=== PATIENT | male | born 1975 | race Hispanic/Latino ===

== ENCOUNTER 2018-05-08 11:25 | Emergency (ER) | payer BC ==
--- NOTE | 2018-05-08 14:53 | RAD REPORT ---
EXAM DESCRIPTION: US - Abdomen Exam Limited - 05/08/2018 2:33 pm CLINICAL HISTORY: Abdominal pain. COMPARISON: None. FINDINGS: The gallbladder wall is not thickened. A gallstone is not seen. The biliary tree is normal caliber. Liver has increased echotexture which may indicate fatty infiltra tion IMPRESSION: Unremarkable gallbladder ultrasound.
[2018-05-08 15:19] LABS: Absolute Lymphocytes (CBC) 1.4 K/uL (0.7-4.9); Absolute Monocytes 0.9 K/uL (0.1-1.3); Absolute Neutrophil 5.5 K/uL (1.8-8.0); Basophils % 0.4 % (0-1.3); Eosinophils % 8.4 % (0-4.4); Hematocrit 48.7 % (39.6-49.0); Lymphocytes % 16.7 % (15.3-44.8); MPV 9.9 fL (7.6-11.3); Monocytes % 10.4 % (3.3-12.3); RBC Red Blood Cell Count 5.31 M/uL (4.33-5.43)
[2018-05-08] MEDS ORDERED: ONDANSETRON 4 MG/2 ML VIAL ONE (15:23)
[2018-05-08] MEDS ORDERED: MORPHINE 4 MG/ML SYR ONE (15:23)
[2018-05-08] MEDS ORDERED: NA CHLORIDE 0.9% 1,000 ML ONE (15:23)
[2018-05-08 15:41] LABS: ALT/SGPT 63 U/L (12-78); AST/SGOT 24 U/L (15-37); Albumin 4.3 g/dL (3.4-5.0); Alkaline Phosphatase 85 U/L (45-117); BUN Blood Urea Nitrogen 12 mg/dL (7-18); Bicarbonate 27 mmol/L (21-32); Bilirubin Direct 0.2 mg/dL (0-0.2); Bilirubin Total 0.7 mg/dL (0.2-1.0); Glucose Level 98 mg/dL (74-106); Lipase 111 U/L (73-393); Potassium 4.1 mmol/L (3.5-5.1); Protein, Total 7.9 g/dL (6.4-8.2); Sodium Level 138 mmol/L (136-145)
--- NOTE | 2018-05-08 15:50 | ER ---
Nurse's Notes [facility] Name: Chang Alberto Age: 42 yrs Sex: Male : 1975 Arrival Date: 05/08/2018 Time: 11:31 Bed 24 Private MD: None, None Diagnosis: Abdominal tenderness;Vomiting;Diarrhea, unspecified Presentation: 05/08 12:02 Presenting complaint: Patient states: Epigastric pain with N/V/D x 2 days. Transition aj of care: patient was not received from another setting of care. Onset of symptoms was May 06, 2018. Risk Assessment: Do you want to hurt yourself or someone else? Patient reports no desire to harm self or others. Initial Sepsis Screen: Does the patient meet any 2 criteria? No. Patient's initial sepsis screen is negative. Does the patient have a suspected source of infection? No. Patient's initial sepsis screen is negative. Care prior to arrival: None. 12:02 Method Of Arrival: Ambulatory aj 12:02 Acuity: JL 3 aj Triage Assessment: 12:04 General: Appears in no apparent distress. comfortable, Behavior is calm, cooperative, aj appropriate for age. Pain: Complains of pain in epigastric area. Neuro: Level of Consciousness is awake, alert, obeys commands, Oriented to person, place, time, situation, Appropriate for age. Respiratory: Airway is patent Respiratory effort is even, unlabored, Respiratory pattern is regular, symmetrical. GI: Reports diarrhea, epigastric pain, nausea, vomiting. Derm: Skin is intact, is healthy with good turgor, Skin is pink, warm \T\ dry. normal. Historical: - Allergies: 12:04 No Known Allergies; aj - Home Meds: 12:04 Pepcid Oral [Active]; unknown thyroid med [Active]; aj - PMHx: 12:04 Hypothyroidism; Ulcers; aj - PSHx: 12:04 Appendectomy; aj - Immunization history:: Adult Immunizations up to date. - Social history:: Smoking status: Patient/guardian denies using tobacco, Patient uses alcohol, occasionally. - Ebola Screening: : Patient negative for fever greater than or equal to 101.5 degrees Fahrenheit, and additional compatible Ebola Virus Disease symptoms Patient denies exposure to infectious person Patient denies travel to an Ebola-affected area in the 21 days before illness onset No symptoms or risks identified at this time. Screenin:25 Abuse screen: Denies threats or abuse. Nutritional screening: No deficits noted. tl3 Tuberculosis screening: No symptoms or risk factors identified. Fall Risk None identified. Assessment: 13:25 General: Appears uncomfortable, well groomed, well developed, well nourished, Behavior tl3 is calm, cooperative, appropriate for age. Pain: Complains of pain in epigastric area Pain began 2-3 days ago. Aggravated by eating, worse in recumbent position, worse even after drinking water. Neuro: Level of Consciousness is awake, alert, obeys commands, Oriented to person, place, time, situation, Appropriate for age. Cardiovascular: Patient's skin is warm and dry. Respiratory: Airway is patent Respiratory effort is even, unlabored, Respiratory pattern is regular, symmetrical. GI: Bowel sounds present X 4 quads. Abd is soft Abdomen is tender to palpation in epigastric area Reports vomiting, since 2-3 times over the last couple of days. : No deficits noted. No signs and/or symptoms were reported regarding the genitourinary system. EENT: No deficits noted. No signs and/or symptoms were reported regarding the EENT system. Derm: No deficits noted. No signs and/or symptoms reported regarding the dermatologic system. Musculoskeletal: No deficits noted. No signs and/or symptoms reported regarding the musculoskeletal system. Vital Signs: 12:04 BP 134 / 98; Pulse 83; Resp 16; Temp 98.4; Pulse Ox 99% on R/A; Weight 72.57 kg; Height aj 5 ft. 5 in. (165.10 cm); 13:25 BP 121 / 89; Pulse 78; Resp 18; Pulse Ox 97% on R/A; tl3 12:04 Body Mass Index 26.63 (72.57 kg, 165.10 cm) aj ED Course: 11:31 Patient arrived in ED. mr 11:32 None, None is Private Physician. mr 12:03 Triage completed. aj 12:04 Arm band placed on left wrist. Patient placed in waiting room, Patient notified of wait aj time. 13:17 Praful Olivares MD is Attending Physician. [facility] 13:19 Evelyne Doss, RN is Primary Nurse. tl3 13:25 Patient has correct armband on for positive identification. tl3 13:25 No provider procedures requiring assistance completed. tl3 14:00 Inserted saline lock: 20 gauge in right antecubital area, using aseptic technique. tl3 Blood collected. IV discontinued, intact, bleeding controlled, No redness/swelling at site. Pressure dressing applied. 14:15 X-ray completed. Portable x-ray completed in exam room. Patient tolerated procedure sg4 well. 14:32 Ultrasound completed. Patient tolerated well. sg3 14:33 US Abdomen Limited In Process Unspecified. EDMS 15:11 Abdomen Acute Series XRAY Sent. tl3 15:21 Abdomen Acute Series XRAY In Process Unspecified. EDMS 15:49 Howard Hoover MD is Referral Physician. [facility] Administered Medications: 15:15 Drug: NS 0.9% 1000 ml Route: IV; Rate: 1 bolus; Site: left antecubital; Delivery: tl3 Primary tubing; 16:32 Follow up: IV Status: Completed infusion; IV Intake: 1620ml tl3 15:15 Drug: Zofran 4 mg Route: IVP; Infused Over: 2 mins; Site: left antecubital; tl3 16:33 Follow up: Response: No adverse reaction tl3 16:29 Drug: morphine 4 mg Route: IVP; Infused Over: 2 mins; Site: left antecubital; tl3 16:32 Follow up: Response: Pain is decreased tl3 Intake: 16:32 IV: 1620ml; Total: 1620ml. tl3 Outcome: 15:50 Discharge ordered by . [facility] 17:20 Discharged to home ambulatory. tl3 17:20 Condition: stable 17:20 Discharge instructions given to patient, Instructed on discharge instructions, follow up and referral plans. medication usage, Demonstrated understanding of instructions, follow-up care, medications. 17:21 Patient left the ED. tl3 Signatures: Dispatcher [employer] Mildred White RN RN aj Anderson, Corey, MD MD cha Rivera, Aminah mr MtzSally zhao sg3 Evelyne Doss RN RN tl3 Marce Stark sg4 Corrections: (The following items were deleted from the chart) 13:28 13:25 GI: Bowel sounds present X 4 quads. Abd is soft Abdomen is tender to palpation in tl3 epigastric area tl3
--- NOTE | 2018-05-08 15:51 | EDPHYS ---
Physician Documentation [facility] Name: Chang Alberto Age: 42 yrs Sex: Male : 1975 Arrival Date: 05/08/2018 Time: 11:31 Bed 24 Private MD: None, None ED Physician Praful Olivares HPI: 05/08 13:38 This 42 yrs old Male presents to ER via Ambulatory with complaints of ruben Abdominal Pain. 13:38 The patient presents with abdominal pain in the epigastric area, in the upper abdomen. ruben Onset: The symptoms/episode began/occurred 1 day(s) ago. The symptoms do not radiate. Associated signs and symptoms: none. The symptoms are described as constant, crampy. Modifying factors: The symptoms are alleviated by nothing, the symptoms are aggravated by nothing. Severity of pain: At its worst the pain was moderate in the emergency department the pain is unchanged. The patient has not experienced similar symptoms in the past. Historical: - Allergies: 12:04 No Known Allergies; aj - Home Meds: 12:04 Pepcid Oral [Active]; unknown thyroid med [Active]; aj - PMHx: 12:04 Hypothyroidism; Ulcers; aj - PSHx: 12:04 Appendectomy; aj - Immunization history:: Adult Immunizations up to date. - Social history:: Smoking status: Patient/guardian denies using tobacco, Patient uses alcohol, occasionally. - Ebola Screening: : Patient negative for fever greater than or equal to 101.5 degrees Fahrenheit, and additional compatible Ebola Virus Disease symptoms Patient denies exposure to infectious person Patient denies travel to an Ebola-affected area in the 21 days before illness onset No symptoms or risks identified at this time. ROS: 13:39 Constitutional: Negative for fever, chills, and weight loss, Eyes: Negative for injury, ruben pain, redness, and discharge, ENT: Negative for injury, pain, and discharge, Neck: Negative for injury, pain, and swelling, Cardiovascular: Negative for chest pain, palpitations, and edema, Respiratory: Negative for shortness of breath, cough, wheezing, and pleuritic chest pain, Back: Negative for injury and pain, : Negative for injury, bleeding, discharge, and swelling, MS/Extremity: Negative for injury and deformity, Skin: Negative for injury, rash, and discoloration, Neuro: Negative for headache, weakness, numbness, tingling, and seizure, Psych: Negative for depression, anxiety, suicide ideation, homicidal ideation, and hallucinations, Allergy/Immunology: Negative for hives, rash, and allergies, Endocrine: Negative for neck swelling, polydipsia, polyuria, polyphagia, and marked weight changes, Hematologic/Lymphatic: Negative for swollen nodes, abnormal bleeding, and unusual bruising. 13:39 Abdomen/GI: Positive for abdominal pain, of the epigastric area, right upper quadrant and left upper quadrant. Exam: 13:39 Constitutional: This is a well developed, well nourished patient who is awake, alert, ruben and in no acute distress. Head/Face: Normocephalic, atraumatic. Eyes: Pupils equal round and reactive to light, extra-ocular motions intact. Lids and lashes normal. Conjunctiva and sclera are non-icteric and not injected. Cornea within normal limits. Periorbital areas with no swelling, redness, or edema. ENT: Nares patent. No nasal discharge, no septal abnormalities noted. Tympanic membranes are normal and external auditory canals are clear. Oropharynx with no redness, swelling, or masses, exudates, or evidence of obstruction, uvula midline. Mucous membranes moist. Neck: Trachea midline, no thyromegaly or masses palpated, and no cervical lymphadenopathy. Supple, full range of motion without nuchal rigidity, or vertebral point tenderness. No Meningismus. Chest/axilla: Normal chest wall appearance and motion. Nontender with no deformity. No lesions are appreciated. Cardiovascular: Regular rate and rhythm with a normal S1 and S2. No gallops, murmurs, or rubs. Normal PMI, no JVD. No pulse deficits. Respiratory: Lungs have equal breath sounds bilaterally, clear to auscultation and percussion. No rales, rhonchi or wheezes noted. No increased work of breathing, no retractions or nasal flaring. Back: No spinal tenderness. No costovertebral tenderness. Full range of motion. Male : Normal genitalia with no discharge or lesions. Skin: Warm, dry with normal turgor. Normal color with no rashes, no lesions, and no evidence of cellulitis. MS/ Extremity: Pulses equal, no cyanosis. Neurovascular intact. Full, normal range of motion. Neuro: Awake and alert, GCS 15, oriented to person, place, time, and situation. Cranial nerves II-XII grossly intact. Motor strength 5/5 in all extremities. Sensory grossly intact. Cerebellar exam normal. Normal gait. Psych: Awake, alert, with orientation to person, place and time. Behavior, mood, and affect are within normal limits. 13:39 Abdomen/GI: Inspection: abdomen appears normal, Bowel sounds: normal, Palpation: mild abdominal tenderness, in the epigastric area, right upper quadrant and left upper quadrant, Liver: is firm, Hernia: not appreciated. Vital Signs: 12:04 BP 134 / 98; Pulse 83; Resp 16; Temp 98.4; Pulse Ox 99% on R/A; Weight 72.57 kg; Height aj 5 ft. 5 in. (165.10 cm); 13:25 BP 121 / 89; Pulse 78; Resp 18; Pulse Ox 97% on R/A; tl3 12:04 Body Mass Index 26.63 (72.57 kg, 165.10 cm) aj MDM: 13:17 Patient medically screened. [facility] 13:40 Data reviewed: vital signs, nurses notes, lab test result(s), radiologic studies, CT ruben scan, plain films, ultrasound. 05/08 13:36 Order name: Basic Metabolic Panel; Complete Time: 15:47 [facility] 05/08 13:36 Order name: CBC with Diff; Complete Time: 15:36 [facility] 05/08 13:36 Order name: Creatinine for Radiology; Complete Time: 15:36 [facility] 05/08 13:36 Order name: Hepatic Function; Complete Time: 15:47 [facility] 05/08 13:36 Order name: Lipase; Complete Time: 15:47 [facility] 05/08 15:58 Order name: Urine Dipstick--Ancillary (enter results) 05/08 13:36 Order name: IV Saline Lock; Complete Time: 16:33 [facility] 05/08 13:36 Order name: Labs collected and sent; Complete Time: 16:33 [facility] 05/08 13:36 Order name: US Abdomen Limited; Complete Time: 15:06 [facility] 05/08 13:36 Order name: Urine Dipstick-Ancillary (obtain specimen); Complete Time: 15:24 [facility] 05/08 13:36 Order name: Abdomen Acute Series XRAY ruben Administered Medications: 15:15 Drug: NS 0.9% 1000 ml Route: IV; Rate: 1 bolus; Site: left antecubital; Delivery: tl3 Primary tubing; 16:32 Follow up: IV Status: Completed infusion; IV Intake: 1620ml tl3 15:15 Drug: Zofran 4 mg Route: IVP; Infused Over: 2 mins; Site: left antecubital; tl3 16:33 Follow up: Response: No adverse reaction tl3 16:29 Drug: morphine 4 mg Route: IVP; Infused Over: 2 mins; Site: left antecubital; tl3 16:32 Follow up: Response: Pain is decreased tl3 Disposition: 05/08/18 15:50 Discharged to Home. Impression: Abdominal tenderness, Vomiting, Diarrhea, unspecified. - Condition is Stable. - Discharge Instructions: Abdominal Pain, Adult, Food Choices to Help Relieve Diarrhea, Adult, Diarrhea, Adult, Nausea and Vomiting, Adult, Nausea and Vomiting, Adult, [id number], Abdominal Pain, Adult, [id number], Diarrhea, Adult, [id number]. - Prescriptions for Bentyl 20 mg Oral Tablet - take 1 tablet by ORAL route every 6 hours As needed; 20 tablet. Pepcid 20 mg Oral Tablet - take 1 tablet by ORAL route every 12 hours for 10 days; 20 tablet. Zofran 4 mg Oral Tablet - take 1 tablet by ORAL route every 12 hours As needed; 14 tablet. - Medication Reconciliation Form, Thank You Letter, Antibiotic Education, Prescription Opioid Use form. - Follow up: Private Physician; When: 2 - 3 days; Reason: Recheck today's complaints, Continuance of care, Re-evaluation by your physician. Follow up: Howard Hoover MD; When: 2 - 3 days; Reason: Recheck today's complaints, Re-evaluation by your physician. - Problem is new. - Symptoms have improved. Signatures: Dispatcher [employer] Mildred White RN RN aj Anderson, Corey, MD MD cha Lowrey, Tammy RN RN tl3 Corrections: (The following items were deleted from the chart) 17:21 15:50 05/08/2018 15:50 Discharged to Home. Impression: Abdominal tenderness; Vomiting; tl3 Diarrhea, unspecified. Condition is Stable. Forms are Medication Reconciliation Form, Thank You Letter, Antibiotic Education, Prescription Opioid Use. Follow up: Private Physician; When: 2 - 3 days; Reason: Recheck today's complaints, Continuance of care, Re-evaluation by your physician. Follow up: Howard Hoover; When: 2 - 3 days; Reason: Recheck today's complaints, Re-evaluation by your physician. Problem is new. Symptoms have improved. ruben
--- NOTE | 2018-05-08 16:27 | RAD REPORT ---
EXAM DESCRIPTION: RAD - Abdomen Acute Series - 05/08/2018 3:20 pm CLINICAL HISTORY: Abdominal pain FINDINGS: Air is present within a borderline dilated loop of small bowel. Air is present within the colon. This is a nonspecific bowel gas pattern. Free air is not seen beneath the diaphragm. The lungs appear clear of acute infiltrate. .
[2018-05-08 16:42] LABS: Urine Blood NEGATIVE (NEG); Urine Glucose NEGATIVE (NEG); Urine Protein NEGATIVE (NEG); Urine Specific Gravity 1.015 (1.005-1.030)
== END 2018-05-08 17:21 | disposition home or self-care (01) ==
LOC: ER 11:25
DX: R11.10 Vomiting, unspecified (principal); R19.7 Diarrhea, unspecified; E03.9 Hypothyroidism, unspecified
CPT/HCPCS: 36415; 74022; 76705; 80048; 80076; 81003; 83690; 85025; 96361; 96374; 96375; 99284; J2405; J7030